=== PATIENT | female | born 1965 | race Caucasian/White ===

== ENCOUNTER 2020-12-20 10:20 | Emergency (ER) | payer BC, OTHER ==
[~2020-12-20] VITALS: Ht 162.6 cm; Wt 58.2 kg
[2020-12-20 11:21] LABS: BASOPHILS % (AUTO) 0.6 % (0-1); EOSINOPHILS # (AUTO) 0.1 X10'3 (0-0.9); EOSINOPHILS % (AUTO) 1.4 % (0-6); HEMATOCRIT 39.9 % (35.0-45.0); HEMOGLOBIN 13.8 g/dl (12.0-16.0); LYMPHOCYTES # (AUTO) 1.1 X10'3 (1.1-4.8); LYMPHOCYTES % (AUTO) 16.2 % (21-51); MEAN CORPUSCULAR HEMOGLOBIN 34.1 PG (27.0-31.0); MEAN CORPUSCULAR HGB CONC 34.5 g/dL (33.0-36.5); MEAN CORPUSCULAR VOLUME 98.9 FL (78-98); MEAN PLATELET VOLUME 8.1 FL (7.4-10.4); MONOCYTES # (AUTO) 0.3 X10'3 (0-0.9); MONOCYTES % (AUTO) 4.4 % (2-12); NEUTROPHILS # (AUTO) 5.3 X10'3 (1.8-7.7); NEUTROPHILS % (AUTO) 77.4 % (42-75); PLATELET COUNT 257 X10'3 (140-440); RED BLOOD COUNT 4.04 X10'6 (4.20-5.60); RED CELL DISTRIBUTION WIDTH 12.4 % (11.5-14.5); WHITE BLOOD COUNT 6.8 X10'3 (4.5-11.0)
[2020-12-20 11:49] LABS: ALANINE AMINOTRANSFERASE 16 U/L (12-78); ALBUMIN 4.1 G/DL (3.4-5.0); ALBUMIN/GLOBULIN RATIO 1.2 (1.1-1.5); ALKALINE PHOSPHATASE 75 IU/L (46-116); ANION GAP 9 (8-16); ASPARTATE AMINO TRANSFERASE 14 U/L (10-37); BILIRUBIN,TOTAL 0.3 MG/DL (0.1-1.0); BLOOD UREA NITROGEN 10 MG/DL (7-18); BUN/CREATININE RATIO 14.5 (6.6-38.0); CALCIUM 9.5 MG/DL (8.5-10.1); CHLORIDE 107 MMOL/L (99-107); CREATININE 0.69 MG/DL (0.40-0.90); GLUCOSE 115 MG/DL (70-104); POTASSIUM 3.7 MMOL/L (3.5-5.1); SODIUM 143 MMOL/L (135-145); TOTAL CARBON DIOXIDE 26.9 MMOL/L (24-32); TOTAL PROTEIN 7.5 G/DL (6.4-8.2); eGFR 89 ML/MIN
[2020-12-20] MEDS ORDERED: meclizine 12.5mg tablet PO PRN (12:40)
[2020-12-20] MEDS ORDERED: ketorolac tromethamine 15mg/ml inj. IV ONE (12:40)
[2020-12-20] MEDS ORDERED: MECL-226 PO (13:14)
[2020-12-20 13:36] LABS: CLARITY,URINE CLEAR (Clear); COLOR,URINE STRAW (Yellow); GLUCOSE, URINE NEGATIVE (Neg); KETONES,URINE NEGATIVE (Neg); LEUKOCYTE ESTERASE ,URINE NEGATIVE (Neg); NITRITES, URINE NEGATIVE (Neg); OCCULT BLOOD,URINE LARGE (Neg); PROTEIN,URINE NEGATIVE (Neg); UROBILINOGEN,URINE 0.2 E.U/dL (0.2-1.0)
[2020-12-20 13:38] LABS: UA COLLECTION TYPE CLN CATCH MIDSTREAM
[2020-12-20 13:43] LABS: BACTERIA,URINE NONE SEEN /HPF (Neg); MUCUS STRANDS NONE SEEN /LPF (Neg); RBC,URINE 50-100 /HPF (0-2); SQUAMOUS EPITHELIAL CELL,UR FEW /LPF (FEW); TRANSITIONAL EPI CELLS,URINE FEW /HPF; WBC,URINE 0-4 /HPF (0-4)
[2020-12-20 14:09] VITALS: BP 149/79
== END 2020-12-20 14:11 | disposition home or self-care (01) ==
LOC: ER 10:20
DX: R42 Dizziness and giddiness (principal); G89.29 Other chronic pain; M54.9 Dorsalgia, unspecified; Z88.6 Allergy status to analgesic agent; Z88.5 Allergy status to narcotic agent; Z79.899 Other long term (current) drug therapy
CPT/HCPCS: 36415; 70450; 80053; 81001; 85025; 93005; 96374; 99285; J1885; J8597

== ENCOUNTER 2024-10-26 17:19 | Emergency (ER) | payer MEDICARE, OTHER ==
[~2024-10-26] VITALS: Ht 165.1 cm; Wt 59.0 kg
[~2024-10-26 17:19] MED LIST: MECL-226 PO
[2024-10-26 17:32] VITALS: TEMP 99.2
[2024-10-26 17:40] LABS: BASOPHILS # (AUTO) 0.1 X10'3 (0-0.2); BASOPHILS % (AUTO) 1.3 % (0-1); EOSINOPHILS # (AUTO) 0.2 X10'3 (0-0.9); EOSINOPHILS % (AUTO) 2.5 % (0-6); HEMATOCRIT 41.6 % (35.0-45.0); HEMOGLOBIN 14.7 g/dl (12.0-16.0); LYMPHOCYTES # (AUTO) 2.2 X10'3 (1.1-4.8); LYMPHOCYTES % (AUTO) 27.4 % (21-51); MEAN CORPUSCULAR HEMOGLOBIN 34.1 PG (27.0-31.0); MEAN CORPUSCULAR HGB CONC 35.3 g/dL (33.0-36.5); MEAN CORPUSCULAR VOLUME 96.6 FL (78-98); MEAN PLATELET VOLUME 7.6 FL (7.4-10.4); MONOCYTES # (AUTO) 0.5 X10'3 (0-0.9); MONOCYTES % (AUTO) 6.8 % (2-12); NEUTROPHILS # (AUTO) 4.9 X10'3 (1.8-7.7); PLATELET COUNT 317 X10'3 (140-440); RED BLOOD COUNT 4.31 X10'6 (4.20-5.60); RED CELL DISTRIBUTION WIDTH 12.3 % (11.5-14.5); WHITE BLOOD COUNT 7.9 X10'3 (4.5-11.0)
[2024-10-26 17:55] LABS: ALANINE AMINOTRANSFERASE 15 U/L (12-78); ALBUMIN 4.3 G/DL (3.4-5.0); ALBUMIN/GLOBULIN RATIO 1.2 (1.1-1.5); ALKALINE PHOSPHATASE 97 IU/L (46-116); ANION GAP 9 (8-16); ASPARTATE AMINO TRANSFERASE 14 U/L (10-37); BILIRUBIN,TOTAL 0.5 MG/DL (0.1-1.0); BLOOD UREA NITROGEN 6 MG/DL (7-18); BUN/CREATININE RATIO 8.6 (10.0-20.0); CALCIUM 9.4 MG/DL (8.5-10.1); CHLORIDE 105 MMOL/L (99-107); GLUCOSE 127 MG/DL (70-104); POTASSIUM 3.3 MMOL/L (3.5-5.1); SODIUM 142 MMOL/L (135-145); TOTAL CARBON DIOXIDE 27.6 MMOL/L (24-32); TOTAL PROTEIN 7.9 G/DL (6.4-8.2); eCRCL 80 ML/MIN; eGFR 86 ML/MIN
[2024-10-26 17:56] LABS: APTT 27 SECONDS (22-32); PROTHROMBIN TIME 10.1 SECONDS (9.0-12.0)
[2024-10-26 18:04] LABS: FREE T4 (FREE THYROXINE) 1.15 NG/DL (0.73-1.40); PRO BRAIN NATRIURETIC PEPTIDE 353 PG/ML (0-125)
[2024-10-26] MEDS ORDERED: PROP10TA10 PO (19:56)
[2024-10-26] MEDS ORDERED: OMEP20CA16 PO (19:56)
[2024-10-26] MEDS ORDERED: LOSA50TA64 PO (19:56)
[2024-10-26] MEDS ORDERED: CYCL-1 PO (19:56)
[2024-10-26] MEDS: normal saline 1000ml 1,000 ML IV ONE (20:45)
[2024-10-26] MEDS: metoclopramide 5 mg/ml inj IV ONE (20:46)
[2024-10-26] MEDS: diphenhydrAMINE 50 mg/ml inj IV ONE (20:46)
[2024-10-26] MEDS: ketorolac trometh 15mg/ml vial 15 MG/ML ML IV ONE (21:24)
[2024-10-26 21:42] VITALS: BP 144/74; PULSE 79; RESP 14; O2SAT 99
== END 2024-10-26 21:44 | disposition home or self-care (01) ==
LOC: ER 17:19
DX: G43.909 Migraine, unspecified, not intractable, without status migrainosus (principal); R07.9 Chest pain, unspecified; Z88.5 Allergy status to narcotic agent; Z88.8 Allergy status to other drugs, medicaments and biological substances
CPT/HCPCS: 36415; 70450; 71045; 80053; 83880; 84439; 84443; 84484; 85025; 85610; 85730; 93005; 96361; 96374; 96375; 99285; J1200; J1885; J2765; J7030

== ENCOUNTER 2025-06-02 16:20 | Emergency (ER) | payer MEDICARE, OTHER ==
[~2025-06-02] VITALS: Ht 162.6 cm; Wt 56.4 kg
[~2025-06-02 16:20] MED LIST changes: +CYCL-1 PO; +LOSA50TA64 PO; -MECL-226 PO; +OMEP20CA16 PO; +PROP10TA10 PO
--- NOTE | 2025-06-02 16:30 | Physician Documentation ---
History of Present Illness General Chief Complaint: Chest Pain Stated Complaint: CP Time Seen by MD: 16:28 Primary Medical Doctor: none History of Present Illness Initial Comments The patient is a 60-year-old female with a history of hypertension who suddenly developed epigastric pain that radiates to her back at 10:30 a.m. this morning a proximally 6 hours prior to arrival. The patient states she has has a lot of gas and burping. She has also had intermittent diarrhea. The patient states she was recently sick for last week and a half with cough and congestion. The patient states her cough and congestion has improved. The patient states her pain is 10/10. The patient states it is pleuritic in nature. Medication Reconciliation Allergies: Coded Allergies: acetaminophen (Verified Allergy, Unknown, 10/26/24) codeine (Verified Allergy, Unknown, 10/26/24) morphine (Verified Allergy, Unknown, 10/26/24) propoxyphene (Verified Allergy, Unknown, 10/26/24) Scheduled Cyclobenzaprine* (Cyclobenzaprine*), 1 TAB PO HS, (Reported) Losartan Potassium (Losartan Potassium), 1 TAB PO DAILY, (Reported) Omeprazole (Omeprazole), 1 CAP PO DAILY, (Reported) Propranolol Hcl* (Inderal*), 1 TAB PO BID, (Reported) Past Medical History Past Medical History: *ENT*, *CARDIOVASCULAR*, Chronic Pain, Chronic Back Pain Past Surgical History: other Other Past Surgical History: Spinal stimulator implant Alcohol Use: None Drug Use: none Lives with: Family Lives In: Home Occupation: employed Review of Systems CV: Reports: chest pain Physical Exam Physical Exam Vital Signs: Temperature: 98.0, Source: Temporal, Heart Rate: 82, Respiratory Rate: 16, BP: 158/72, Pulse Oximetry: 98, Weight: 56.360 Oxygen Flow Rate: 0 Physical Exam General: This is a pleasant and overall well-appearing middle-aged woman, family at bedside HEENT: Atraumatic, oropharynx is moist Heart: Regular rate and rhythm, normal-appearing peripheral perfusion including normal right radial pulse Lungs: Clear breath sounds bilateral, normal work of breathing, normal oxygen saturation on room air Abdomen: Soft, nondistended, nontender all quadrants including in the epigastric region Extremities: Warm and well-perfused, no significant edema or calf tenderness Neuro: Alert and oriented Psychiatric: Calm and cooperative with exam Progress Results/Orders Results/Orders Completed Orders - BONI ARRIETA MD Lidocaine 5% Patch (Lidoderm 5% Patch) (06/02/25 21:25) Hydromorphone 0.5 Mg/0.5 Ml/Pf (Dilaudid (06/02/25 21:25) Hydromorphone 1 Mg/Ml/Pf (Dilaudid Inj.) (06/02/25 21:50) Ua W/Microscopic, Cult If Ind (06/02/25 22:10) Vital Signs 06/02/25 06/02/25 06/02/25 06/02/25 16:21 16:28 16:55 17:47 Temp 98.0 Pulse 82 Resp 16 20 18 20 B/P (MAP) 158/72 Pulse Ox 98 O2 Flow Rate 0 06/02/25 06/02/25 06/02/25 06/02/25 17:57 19:48 19:50 20:57 Temp 98.0 98.0 Pulse 70 89 Resp 18 20 18 20 B/P (MAP) 167/90 (115) 140/93 (109) Pulse Ox 98 97 O2 Flow Rate 0 0 06/02/25 06/02/25 21:53 22:17 Pulse 78 Resp 14 18 B/P (MAP) 151/91 Pulse Ox 97 Laboratory Tests Test 06/02/25 16:39 06/02/25 18:29 06/02/25 22:10 White Blood Count 7.8 Red Blood Count 4.09 L Hemoglobin 13.8 Hematocrit 39.9 Mean Corpuscular Volume 97.7 Mean Corpuscular Hemoglobin 33.8 H Mean Corpuscular Hemoglobin Concent 34.6 Red Cell Distribution Width 12.7 Platelet Count 296 Mean Platelet Volume 8.5 Neutrophils (%) (Auto) 88.0 H Lymphocytes (%) (Auto) 9.3 L Monocytes (%) (Auto) 1.7 L Eosinophils (%) (Auto) 0.2 Basophils (%) (Auto) 0.8 Neutrophils # (Auto) 6.9 Lymphocytes # (Auto) 0.7 L Monocytes # (Auto) 0.1 Eosinophils # (Auto) 0.0 Basophils # (Auto) 0.1 CBC Comment D-Dimer 0.30 D-Dimer Comment Sodium Level 141 Potassium Level 3.5 Chloride Level 103 Carbon Dioxide Level 27.6 Anion Gap 10 Blood Urea Nitrogen 11 Creatinine 0.75 Estimated GFR/1.73 m2 79 BUN/Creatinine Ratio 14.7 Glucose Level 156 H Calcium Level 8.8 Total Bilirubin 0.2 Aspartate Amino Transf (AST/SGOT) 14 Alanine Aminotransferase (ALT/SGPT) 13 Alkaline Phosphatase 102 Troponin I High Sensitivity 6 6 Pro-B-Type Natriuretic Peptide 367 H Total Protein 7.7 Albumin 3.9 Globulin 3.8 Albumin/Globulin Ratio 1.0 L Lipase 26 Procalcitonin < 0.05 Chemistry Comments Troponin I High Sens Percent Delta 0 Troponin I Hi Sens Absolute Change 0 Urine Specimen Description Cln catch midstream Urine Color Yellow Urine Clarity Clear Urine pH 6.0 Urine Specific [place] <=1.005 Urine Protein Negative Urine Glucose (UA) Negative Urine Ketones Negative Urine Occult Blood Large H Urine Nitrite Negative Urine Bilirubin Negative Urine Urobilinogen 0.2 Urine Leukocyte Esterase Negative Urine RBC 20-50 Urine WBC None seen Urine Squamous Epithelial Cells Few Urine Bacteria None seen Urine Culture Indicated Not ind Volume Urine Centrifuged 10 ml Urine Comment Medical Decision Making Additional information obtaine: N/A Findings na Differential Diagnosis Differential includes ACS, PE, dissection, gastritis, gallbladder disease, kidney infection Addendum Sign-out note: I received this patient at shift change. She presents with chest pain/abdominal pain. Her heart testing does not show evidence of ACS. D-dimer is normal tim ing PE unlikely. Pending CT abdomen pelvis. I personally interpreted the CT scan, and this shows no bowel obstruction or inflammatory process, no kidney stone Re-evaluation: The patient is sitting in bed, reports ongoing pain. When I asked her where the pain is she points to her right lower back. On exam she has reproducible muscle tenderness. 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 I explained the results of her testing. She is already on muscle relaxants. She will be given a lidocaine patch. She will be discharged with symptomatic treatment for possible muscle spasm, with no other dangerous cause identified for her symptoms. Boni Arrieta MD Departure Time of Disposition: 21:23 Disposition: 01 HOME / SELF CARE / HOMELESS Impression: Primary Impression: Back muscle spasm Additional Impression: Gastritis Condition: Improved Discharge Instructions: Muscle Cramps and Spasms Referrals: NO PRIMARY CARE PROVIDER (PCP) Education Educated: Patient Educated regarding: diagnosis, treatment, need for follow up Signature Scribe Signature: na Attestation: YVAN Layne MD Jun 02, 2025 16:30 BONI ARRIETA MD Jun 02, 2025 21:23
--- NOTE | 2025-06-02 16:31 | ELECTROCARDIOGRAPH REPORT ---
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 LEWIS Anand Measurements Intervals [place] Rate: 73 P: 69 NE: 167 QRS: 79 QRSD: 90 T: 73 QT: 447 QTc: 493 Interpretive Statements Sinus rhythm Borderline prolonged QT interval Baseline wander in lead(s) II Electronically Signed On 06-04-2025 15:16:[address] LEWIS Anand Please click the below link to view image of tracing.
--- NOTE | 2025-06-02 16:51 | RADIOLOGY REPORT ---
CHEST RADIOGRAPH Indication: CP Technique: DI CHEST,SINGLE VIEW Comparison: None FINDINGS: The cardiac silhouette is unremarkable. The lungs demonstrate no pulmonary airspace consolidation. The pulmonary vasculature is unremarkable. There is no pleural effusion. There is no pneumothorax. Thoracic neurostimulator leads. IMPRESSION: No pulmonary airspace consolidation.
[2025-06-02] MEDS: ketorolac trometh 15mg/ml vial 15 MG/ML ML IV ONE (16:55)
[2025-06-02 17:28] LABS: MEAN PLATELET VOLUME 8.5 FL (7.4-10.4); RED CELL DISTRIBUTION WIDTH 12.7 % (11.5-14.5)
[2025-06-02 17:47] LABS: CREATININE 0.75 MG/DL (0.40-0.90); TOTAL CARBON DIOXIDE 27.6 MMOL/L (24-32); eCRCL 71 ML/MIN; eGFR 79 ML/MIN
[2025-06-02 17:54] LABS: PRO BRAIN NATRIURETIC PEPTIDE 367 PG/ML (0-125)
--- NOTE | 2025-06-02 18:50 | RADIOLOGY REPORT ---
Procedure: US ULTRASOUND OF [facility]OMEN [facility]PITAL Study Date and Requested Time: 06/02/2025 06:19 PM History: abd pain Comparison: None Technique: Multiple high resolution conn-scale images obtained of the right upper quadrant of the abdomen with color Doppler for evaluation of blood flow and vascularity as indicated. Findings: Liver normal in size, measuring 15 cm in length, with homogenous echotexture and normal contours. No evidence of focal hepatic lesions, intrahepatic or extrahepatic ductal dilatation. Common bile duct measures 0.2 cm in diameter. Gallbladder unremarkable with no evidence of abnormal wall thickening, gallstones, biliary sludge, or pericholecystic fluid. Negative sonographic Meadows's sign. Pancreas is partially obscured by bowel gas with the Visualized pancreas unremarkable. Right kidney measures 11.3 cm in length, with normal contours, echotexture, and cortical thickness. No evidence of hydronephrosis, calculi, cystic or solid renal lesions. Partially visualized inferior vena cava unremarkable. Impression: Pancreas is partially obscured by bowel gas. Otherwise, Unremarkable sonographic study of the right upper quadrant of the abdomen.
[2025-06-02] MEDS ORDERED: HYDROmorphone inj. 0.5 MG/0.5 ML DISP.SYRIN IV ONE (18:55)
[2025-06-02] MEDS ORDERED: iohexol 300mg/ml 100ml inj. ONE (19:11)
[2025-06-02] MEDS: mag hydrox/Alum hydrox/simeth 30ml oral suspension PO ONE (19:43)
[2025-06-02] MEDS: LIDOcaine 2% Viscous 15ml cup MM ONE (19:43)
[2025-06-02 19:50] VITALS: TEMP 98
--- NOTE | 2025-06-02 20:41 | RADIOLOGY REPORT ---
Exam: CT CT ABDOMEN PELVIS W/ IV CONTRAST History: abd pain Comparison Study: None TECHNIQUE: Multidetector CT of the abdomen pelvis with IV contrast. Axial, coronal and sagittal multiplanar reformats were obtained from the axial data set by the technologist. Radiation Dose Information: CT Dose: CTDI volume is 8.24 mGy. Dose-length product is 187.7 mGy*cm FINDINGS: Bibasilar atelectasis. Partially visualized heart is unremarkable. Mild hepatomegaly. Otherwise, liver, spleen, gallbladder, pancreas and adrenal glands unremarkable. 1.2 cm left renal cyst. Otherwise, kidneys, ureters and urinary bladder are unremarkable. Uterus and adnexa are unremarkable. Mild wall thickening of the distal esophagus. Proximal stomach is [id number] distended. Wall thickening of the distal stomach. The small bowel loops unremarkable. Appendix is not definitely visualized. Large amount of fecal material within the cecum. Wall thickening of the transverse colon. Small to moderate amount of fecal material within the remainder of the colon. Distal rectal wall thickening. No evidence of intraperitoneal free air or free fluid. No evidence of aortic aneurysm or dissection. [id number] atherosclerotic calcification of the aorta. No significant Mesenteric lymph node. Tiny fat containing umbilical hernia. The soft tissues are unremarkable. No evidence of acute osseous abnormalities. Spinal stimulator wires are noted terminating within the posterior spinal canal at the level of T10. No evidence of acute osseous abnormalities. IMPRESSION: Wall thickening of the distal stomach. Correlate for gastritis. Mild colitis involving the transverse colon and rectum. Mild esophagitis with fluid within distal esophagus. Small left renal cyst. Mild hepatomegaly.
[2025-06-02] MEDS: HYDROmorphone inj. 0.5 MG/0.5 ML DISP.SYRIN IV ONE (21:56)
[2025-06-02 22:17] VITALS: BP 151/91; PULSE 78; RESP 18; O2SAT 97
[2025-06-02 22:39] LABS: LEUKOCYTE ESTERASE ,URINE NEGATIVE (Neg); NITRITES, URINE NEGATIVE (Neg); OCCULT BLOOD,URINE LARGE (Neg)
[2025-06-02 22:43] LABS: UA COLLECTION TYPE CLN CATCH MIDSTREAM
[2025-06-02 22:45] LABS: SQUAMOUS EPITHELIAL CELL,UR FEW /LPF (FEW)
== END 2025-06-02 22:19 | disposition home or self-care (01) ==
LOC: ER 16:20
DX: K29.70 Gastritis, unspecified, without bleeding (principal); M62.830 Muscle spasm of back; I10 Essential (primary) hypertension; G89.29 Other chronic pain; Z88.5 Allergy status to narcotic agent; Z88.8 Allergy status to other drugs, medicaments and biological substances; Z79.899 Other long term (current) drug therapy
CPT/HCPCS: 36415; 71045; 74177; 76700; 80053; 81001; 83690; 83880; 84145; 84484; 85025; 85379; 93005; 96374; 96375; 96376; 99285; J1171; J1885; Q9967